=== PATIENT | female | born 1955 | race Caucasian/White ===

== ENCOUNTER 2016-11-05 18:48 | Inpatient (IN) ==
[2016-11-05] MEDS ORDERED: ATIVAN IV ONE (19:31)
[2016-11-05] MEDS ORDERED: KEPPRA 500 MG in NS 100 ML IV ONE (19:32)
--- NOTE | 2016-11-05 19:50 | PROVIDER DOCUMENTATION ---
This chart was entered by Nicolette Mccauley Scribe, acting as scribe for Mikey Mejia MD. HPI-Neurological Disorder - General Chief Complaint: Return/Recheck Stated Complaint: Return/Recheck/AMS Time Seen by Provider: 11/05/16 19:23 Source: patient Allergies/Adverse Reactions: Patient Allergies Allergy/AdvReac Type Severity Reaction Status Date / Time No Known Allergies Allergy Verified 11/05/16 15:29 Home Medications: Home Medication List Medication Instructions Recorded Confirmed Last Taken Type Albuterol Sulfate [Ventolin Hfa] 1 inh INH PRN PRN 11/05/16 11/05/16 Unknown History Alendronate [Fosamax] 70 mg PO DAILY 11/05/16 11/05/16 Unknown History Alprazolam [Alprazolam] 1 each PO PRN PRN 11/05/16 11/05/16 Unknown History Hydrocodone/Acetaminophen 1 each PO PRN PRN 11/05/16 11/05/16 Unknown History [Hydrocodon-Acetaminophn 10-325] Potassium Chloride 10 meq PO BID #10 tablet.er 11/05/16 Unknown Rx Pregabalin [Lyrica] 1 each PO TID 11/05/16 11/05/16 Unknown History - History of Present Illness-Neuro Nature of Presenting Problem: 61 Y/O F presents to ED with Neurological. Pt was seen earlier today in ED and diagnosed with 1st onset seizure. Pt left ED and went home stated that as she got home she began shaking and jerking for about 5 mins and states that she had a full body seizure, eyes rolled back and fell back in the chair. Family states acting goofy and confused after and didn't full respond till EMS came and was unaware of surroundings. No prior episodes until today. 2nd episode just [employer]. Severity: reports: moderate Onset/Duration: reports: just prior to arrival, 1 hour ago Timing: reports: still present Context: reports: seizure activity Character of Altered Mental Status: reports: seizure activity Any recent trauma/injury?: reports: none New weakness or altered sensation location:: reports: none Cognitive Baseline: alert, oriented x3 Gait Baseline: walks without assistance Associated Symptoms: reports: seizures. denies: fainting, confusion, neck/back pain, fever/chills, loss of consciousness, nausea, paresthesia, sleepy, tingling in legs/feet, vomiting, weakness - Seizure First time to have a seizure?: No (2nd one today) Witnessed seizure?: Yes () How many seizure episodes?: 1 Duration of episode? (mins): 5 Episode Frequency: no prior episodes Status Epilepticus: No Character of Seizure: reports: generalized shaking all over. denies: incontinent of urine, incontinent of stool Post-ictal Symptoms: reports: confusion Seizure related injury: none Review of Systems - Adult - REVIEW OF SYSTEMS - ADULT Constitutional: denies: chills, fever Eyes: reports: no symptoms reported Ears, Nose, Mouth & Throat: reports: no symptoms reported Cardiovascular: reports: no symptoms reported Respiratory: reports: no symptoms reported Gastrointestinal: reports: no symptoms reported Genitourinary: reports: no symptoms reported Musculoskeletal: reports: no symptoms reported Integumentary: reports: no symptoms reported Neurological: reports: seizure, tremors. denies: numbness, paresthesia Psychiatric: reports: no symptoms reported Endocrine: reports: no symptoms reported Hematologic/Lymphatic: reports: no symptoms reported Allergic/Immunologic: reports: no symptoms reported All Other Systems: Reviewed and Negative Past History - Adult - PAST MEDICAL HISTORY-ADULT Review of Records: reports: Old Records Reviewed, Nursing Assessment Review, Medications Reviewed, Social history reviewed & non-contributory. Cardiovascular: reports: HTN Respiratory: reports: COPD Musculoskeletal: reports: other (muscular distrophy) - IMMUNIZATION STATUS Childhood Immunizations: See Nurse Assessment Flu Vaccine: See Nurse Assessment - SOCIAL HISTORY Smoking: cigarettes, less than 1 pack/day Living Situation: family Physical Exam- Neurological - Physical Exam-Neuro General Appearance: alert, no apparent distress Eye Exam: bilateral eye: normal inspection, PERRL, EOMI HENMT: moist mucous membranes, normal ENT inspection, TMs normal, pharynx normal Head Injury: no evidence of injury Neck: full range of motion, supple, normal inspection Respiratory: chest non-tender, lungs clear, normal breath sounds Cardiovascular: normal peripheral pulses, regular rate, rhythm Abdominal Exam: non tender, soft Lymphatic: no adenopathy Extremity: non-tender, normal gait web ui software engineer Exam: normal hearing, normal speech, PERRL Coordination/Gait: normal finger to nose, normal gait Motor/Sensory: no motor deficit, no sensory deficit, no pronator drift Neurologic: grossly normal Integumentary: normal color, normal turgor, warm/dry Psych/Mental Status: normal mood/affect, normal thought content, normal thought process, oriented x 3 - Glascow Coma Scale Best Eye Response: (4) open spontaneously Best Verbal Response: (5) oriented Best Motor Response: (6) obeys commands Total Glascow Score: 15 Progress - PLAN OF CARE/RESULTS Progress/Plan/Lab Results: Orders Category Date Time Status Levetiracetam [Keppra] 500 mg Med 11/05/16 19:32 Ordered 0.9% Sodium Chloride Inj [Ns] 100 ml IV NOW Lorazepam [Ativan] Med 11/05/16 19:31 Discontinued 1 mg IV NOW ONE - CONSULTS/PCP/HOSPITALIST Notification #1 *Consult/PCP/Hospitalist*: Time Discussed: 19:45 Reason/Comments: Admit Consult Disposition: Admit (Admit Accepted) Departure - Departure Date of Disposition Decision: 11/05/16 Time of Disposition Decision: 19:49 DIAGNOSIS: Seizure Disposition: ADMITTED INPATIENT 09 Certified Medical Emergency: Emergent Condition: Good - Critical Care Note This patient required my direct & personal management of CC.: No Attestation - Physician/ SAMANTHA Attestation Patient care was provided by Advanced Practice Provider:: No The physician spent face to face time with patient:: Yes Advanced Practice Provider documentation review:: Supervising physician onsite and consulted in the evaluation and care of this patient. The physician did have a face to face encounter with the patient. This chart was documented by the indicated scribe, (Nicolette Mccauley Scribe) and accurately reflects the services I performed and decisions made by me, Mikey Mejia MD, as attested by the provider's signature.
[2016-11-05] MEDS ORDERED: KEPPRA PO SCH (21:00)
[2016-11-05] MEDS ORDERED: ATIVAN IV PRN (22:47)
[2016-11-05] MEDS ORDERED: NS + KCL 40 MEQ 1,000 ML IV ONE (22:51)
[2016-11-05] MEDS ORDERED: PROTONIX IV SCH (23:00)
[2016-11-05] MEDS ORDERED: SODIUM CHLORIDE 0.9% INJ SCH (23:00)
[2016-11-06 06:45] LABS: HEMATOCRIT 41.6 % (37.0-47.0); HEMOGLOBIN 13.6 g/dL (12.0-16.0); MCH 31.6 PG (27-31); MCHC 32.7 g/dL (33-37); MCV 96.5 FL (81-99); MPV 10.4 FL (7.4-10.4); RBC 4.31 XMIL (4.2-5.4)
[2016-11-06 06:50] LABS: AGAP 6; BUN 6 mg/dL (8-22); CALCIUM 8.3 mg/dL (8.8-10.2); CHLORIDE 110 mmol/L (98-107); COSMO 277; POTASSIUM 4.1 mmol/L (3.5-5.1); SODIUM 140 mmol/L (136-145); TCO2 24 mmol/L (25-35)
[2016-11-06] MEDS ORDERED: KEPPRA 500 MG in NS 100 ML IV SCH (07:00)
--- NOTE | 2016-11-06 12:52 | Diag Imaging Result Doc PS360 ---
EXAM: MRI BRAIN W W/O CONTRAST - 11/06/2016 HISTORY: seizure TECHNIQUE: Images are obtained prior to and following Omniscan administration. COMPARISON: CT head of 11/05/2016 FINDINGS: There are artifacts from motion which limit detail, most prominently on the unenhanced and enhanced T1-weighted images. There is no evidence of hemorrhage, mass effect, midline shift, or hydrocephalus. There are no substantial signal abnormality is identified. The diffusion weighted images show no areas of restricted diffusion which are distinguishable from small artifacts (no evidence of acute infarct). There is no abnormal enhancement identified. IMPRESSION: No visible intracranial abnormality. Electronically signed by Dimas Cho 11/06/2016 12:50 PM
[2016-11-06 15:45] VITALS: BP 131/66
[2016-11-06] MEDS ORDERED: KEPPRA PO ONE (17:55)
--- NOTE | 2016-11-06 19:32 | DISCHARGE SUMMARY ---
ADMISSION DATE: 11/05/2016 DISCHARGE DATE: 11/06/2016 ADMISSION DIAGNOSES: 1. New onset seizures. 2. Chronic pain and anxiety. 3. Muscular dystrophy. 4. Arthritis. 5. Nicotine dependence. DISCHARGE DIAGNOSES: 1. New onset seizures. 2. Chronic pain and anxiety. 3. Muscular dystrophy. 4. Arthritis. 5. Nicotine dependence. CONSULTATIONS: None. DIAGNOSTIC PROCEDURES AND FINDINGS: Chest x-ray done on 11/05/[address] done on 11/05/2016 with no evidence of acute intracranial pathology. EKG done on 2016 shows normal sinus rhythm with sinus arrhythmia. Brain MRI done on 11/06/2016 is negative for acute intracranial abnormality. HOSPITAL COURSE: Ms. Childs is a 61-year-old female who came to the ER yesterday at [facility] for what was apparently new onset seizures. She was ultimately discharged from the ER and went home and had a reported seizure again and came back. Lab work and head CT were done and were unremarkable. The patient denies that she has abruptly stopped taking medications or illicit drugs. She has no evidence of fever or infection or any other metabolic reason that would cause seizures. She was placed on Keppra IV overnight, and an MRI of the brain was done this morning which was negative for any acute process. She has since been seizure free and is now stable for discharge home where she will be discharged on Keppra and follow up with a neurologist of her choosing. DISCHARGE MEDICATIONS: [place] 10 mg 4 times a day, Lyrica 150 mg b.i.d., Xanax 1 mg p.o. t.i.d., Keppra 500 mg p.o. b.i.d., Ventolin HFA 2 puffs inhaled as needed. DISCHARGE LABORATORY DATA: WBC is 11.65, hemoglobin 13.6, hematocrit 41.6, platelet count 245. Sodium is 140, potassium 4.1, chloride 110, CO2 is 24, anion gap is 6, BUN is 6 , creatinine 0.3, glucose 95, calcium 8.3. DISCHARGE PHYSICAL EXAMINATION: GENERAL: This is a chronically ill and thin bordering on cachectic appearing 61- year-old female lying in the hospital bed, in no acute distress. NEUROLOGICAL: She is awake, alert and oriented. Follows commands without focal deficits. HEENT: Head is atraumatic and normocephalic. Pupils are equal, round and reactive to light. Oral mucosa is moist. NECK: Trachea midline. No JVD. CHEST: Diminished at the bases but clear to auscultation bilaterally. CARDIOVASCULAR: Regular rate and rhythm, S1 and S2 noted. No murmurs, gallops , clicks or rubs. GASTROINTESTINAL: Soft, nondistended and nontender. Bowel sounds positive. EXTREMITIES: No edema, clubbing or cyanosis. Pulses palpable bilaterally. DISCHARGE DIET: Regular. DISCHARGED ACTIVITY: We have instructed the patient not to drive or operate heavy machinery until cleared to do so by neurologist. Otherwise, she is to resume activity as tolerated. DISPOSITION AND OTHER DISCHARGE INSTRUCTIONS: Again, the patient has been instructed about the laws regarding driving and seizure activity. She is to follow up with neurologist of her choosing as soon as possible and with Dr. Monsalve, her PCP, within the next week to 2 weeks. She is to continue on medications as directed. All questions have been answered. Please note also an EEG has been done and is currently pending. Discharge time is greater than 35 minutes. Dictated by KUSH Loaiza for Angelito Cervantes MD cc: KUSH Loaiza MD Robert Allen, MD pt examined, pt is now seizure free, will discharge on keppra and have followup with dr monsalve and possible neurologist KELLIE ARAGON
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
--- NOTE | 2016-11-12 04:03 | EEG REPORT ---
DATE: 11/06/2016 REFERRING PHYSICIAN: Angelito Cervantes MD TECHNOLOGIST: JAY Rey BACKGROUND INFORMATION/TECHNIQUE: A digitally recorded EEG is obtained with 1 additional channel for EKG. HISTORY OF PRESENT ILLNESS: This is a 61-year-old female with possible new onset seizures. An EEG is ordered to detect evidence of seizures. MEDICATIONS: Include Lyrica, Xanax, Keppra, and [place]. EEG FINDINGS: A posterior dominant alpha rhythm is notably absent. At maximal alertness, the background consists of alpha, beta and theta frequencies. No focal slowing. No epileptiform discharges and no seizures. Hyperventilation was not performed. Photic stimulation did not alter the record. The patient becomes drowsy frequently and stage II sleep is achieved with qualitatively normal sleep architecture. The EKG demonstrates regular RR intervals. IMPRESSION AND CLINICAL CORRELATION: Abnormal routine EEG due to: 1. Mild diffuse slowing suggestive of a mild nonspecific encephalopathy. Generalized slowing is a nonspecific finding that can be seen in processes that diffusely affect the cerebrum, including toxic, metabolic, pharmacologic, post hypoxic and infectious etiologies. No epileptiform discharges and no seizures are noted on the current study. This does not rule out an underlying seizure disorder. Clinical correlation is advised. cc: MD Angelito Carrera MD [facility]
== END 2016-11-06 18:32 | disposition home or self-care (01) ==
LOC: P.ED 18:48 → P.MEDSURG 21:06
PROVIDERS: ADMIT Internal Medicine; ATTEND Internal Medicine